=== PATIENT | male | born 1960 | race Asian ===

== ENCOUNTER 2021-05-31 21:38 | Inpatient (IN) | payer MEDICARE, MEDICAID ==
[2021-05-31 21:48] VITALS: BMI 29.5
[2021-05-31] MEDS ORDERED: Ondansetron PF 4 MG/2 ML Vial IVP PRN (21:49)
[2021-05-31] MEDS ORDERED: Calcium Carbonate 500 MG ChewTAB PO PRN (21:49)
[2021-05-31] MEDS ORDERED: Dextrose 5% in Water 1,000 ML IV PRN (21:49)
[2021-05-31] MEDS ORDERED: Acetaminophen 325 MG TAB PO PRN (21:49)
[2021-05-31] MEDS ORDERED: Dextrose 50% Abboject 50 ML SYRINGE SLOW IVP PRN (21:49)
[2021-05-31] MEDS ORDERED: Sodium Chloride 0.9% 1,000 ML IV SCH (22:00)
[2021-05-31] MEDS ORDERED: Octreotide Acetate 1,250 MCG in Sodium Chloride 0.9% 250 ML 250 ML IVPB SCH (22:00)
[2021-05-31 22:32] LABS: Iron 58 ug/dL (65-175); Iron Binding Capacity, Total 149 mcg/dL (261-462)
[2021-05-31] MEDS: Nicotine 21 MG PATCH TD SCH (22:36)
[2021-05-31] MEDS: Albumin 25% 25 GM/100 ML BOT IVPB SCH (22:36)
[2021-05-31 22:41] LABS: #Basophils 0.1 10x3/uL (0.0-0.2); #Eosinphils 0.3 10x3/uL (0.0-0.5); #Monocytes 0.8 10x3/uL (0.0-1.1); %Basophils 0.8 % (0.0-2.0); %Eosinophils 3.9 % (0.0-6.0); %Lymphocytes 16.6 % (18.0-47.0); %Monocytes 10.7 % (0.0-10.0); %Neutrophils 67.5 % (40.0-75.0); Hemoglobin 6.6 g/dL (13.5-17.5); Mean Corpuscular HGB CONC 32.8 g/dL (32.0-36.0); Mean Corpuscular Hemoglobin 20.6 pg (27.0-33.0); Mean Corpuscular Volume 62.6 fl (81.2-95.1); Mean Platelet Volume 9.4 fl (7.4-10.4); Platelet Count 79 10x3/uL (150-450); RBC Distribution Width 20.8 % (11.5-14.5); Red Blood Cell (RBC) Count 3.21 10x6/uL (4.32-5.72); White Blood Cell (WBC) Count 7.4 10x3/uL (3.5-10.5)
[2021-05-31] MEDS: cefTRIAXone\\ROCEPHIN 1 GM in Sodium Chloride 0.9% 100 ML IVPB SCH (23:43)
[2021-05-31 23:53] LABS: Anisocytosis MODERATE=16-30 cells (100X) (0-5/hpf); Hypochromia MODERATE=16-30 cells (100X) (0-5/hpf); Microcytosis MODERATE=15-30 cells (100X) (0-5/hpf); Spherocytes SLIGHT = 1-5 cells (100X) (None Seen)
[2021-05-31 23:54] LABS: Stomatocytes SLIGHT = 2-5 cells (100X) (0-1/hpf); Target Cells SLIGHT = 2-5 cells (100X) (0-1/hpf)
[2021-05-31 23:57] LABS: Platelet Morphology Comment Appears Decreased
[2021-05-31 23:57] LABS: SARS-CoV-2 NAA Rapid Test Not Detected (NotDetected)
[2021-06-01] LABS: Small Platelets SLIGHT
[2021-06-01 00:06] LABS: Hemoglobin C Crystals SLIGHT (None Seen)
[2021-06-01] MEDS: Thiamine HCl 200 MG/2 ML VIAL SLOW IVP SCH ×2 (00:07→23:59)
[2021-06-01] MEDS: Albumin 25% 25 GM/100 ML BOT IVPB SCH (04:28)
[2021-06-01 05:47] LABS: #Eosinphils 0.3 10x3/uL (0.0-0.5); #Monocytes 0.5 10x3/uL (0.0-1.1); #Neutrophils 3.4 10x3/uL (1.5-8.4); %Basophils 0.8 % (0.0-2.0); %Eosinophils 5.7 % (0.0-6.0); %Lymphocytes 17.9 % (18.0-47.0); %Monocytes 10.1 % (0.0-10.0); %Neutrophils 65.1 % (40.0-75.0); Hemoglobin 7.3 g/dL (13.5-17.5); Mean Corpuscular Hemoglobin 22.1 pg (27.0-33.0); Mean Corpuscular Volume 66.8 fl (81.2-95.1); Mean Platelet Volume 9.3 fl (7.4-10.4); Platelet Count 62 10x3/uL (150-450); RBC Distribution Width 23.5 % (11.5-14.5); Red Blood Cell (RBC) Count 3.31 10x6/uL (4.32-5.72); White Blood Cell (WBC) Count 5.3 10x3/uL (3.5-10.5)
[2021-06-01 06:06] LABS: Anion Gap 13 mmol/L (10-20); BUN (Urea Nitrogen) 37 mg/dL (8.4-25.7); Calc. Creatinine Clearance 73 mL/min (70-130); Carbon Dioxide 19 mmol/L (23-31); Chloride 106 mmol/L (98-107); Potassium 4.3 mmol/L (3.5-5.1); Sodium 134 mmol/L (136-145)
[2021-06-01 06:07] LABS: Calcium 8.4 mg/dL (7.8-10.44); Glucose 70 mg/dL (80-115)
[2021-06-01] MEDS: Pantoprazole 80 MG in Sodium Chloride 0.9% 100 ML IVPB SCH ×2 (06:10→13:24)
[2021-06-01] MEDS ORDERED: Glimepiride 4 MG TAB PO SCH (07:30)
[2021-06-01] MEDS: Lantus 1000 UNITS/10 ML VIAL SC SCH (08:38)
[2021-06-01] MEDS: Folic Acid 1 MG TAB PO SCH (08:38)
[2021-06-01] MEDS: Sotalol HCl 80 MG TAB PO SCH (08:39)
[2021-06-01] MEDS: Rifaximin 550 MG TAB PO SCH ×2 (08:39→21:08)
[2021-06-01 09:21] LABS: #Eosinphils 0.3 10x3/uL (0.0-0.5); #Monocytes 0.6 10x3/uL (0.0-1.1); #Neutrophils 3.6 10x3/uL (1.5-8.4); %Basophils 0.8 % (0.0-2.0); %Eosinophils 6.4 % (0.0-6.0); %Lymphocytes 13.6 % (18.0-47.0); %Monocytes 10.4 % (0.0-10.0); %Neutrophils 68.6 % (40.0-75.0); Hemoglobin 7.8 g/dL (13.5-17.5); Mean Corpuscular HGB CONC 33.6 g/dL (32.0-36.0); Mean Corpuscular Hemoglobin 22.4 pg (27.0-33.0); Mean Corpuscular Volume 66.7 fl (81.2-95.1); Mean Platelet Volume 9.6 fl (7.4-10.4); Platelet Count 60 10x3/uL (150-450); RBC Distribution Width 23.2 % (11.5-14.5); Red Blood Cell (RBC) Count 3.48 10x6/uL (4.32-5.72); White Blood Cell (WBC) Count 5.3 10x3/uL (3.5-10.5)
[2021-06-01] MEDS: HumaLOG 300 UNITS/3 ML VIAL SC PRN ×2 (10:31→18:42)
[2021-06-01 15:55] LABS: Bilirubin Neg (Negative); Blood, Urine Negative (Negative); Clarity Clear (Clear); Glucose, Urine (Dipstick) Normal (Negative); Ketone, Urine Negative (Negative); Leukocyte Negative (Negative); Nitrite Negative (Negative); Protein, Urine (Dipstick) 15 mg/dl (Neg-Trace); Urobilinogen Normal mg/dL (Less than 2)
[2021-06-01 16:27] LABS: RBC/HPF 0-3 HPF (0-3); Squamous Epithelial 0-3 HPF (0-3); WBC/HPF 0-3 HPF (0-3)
[2021-06-01 16:28] LABS: Bacteria/HPF Rare-Few HPF (None Seen)
[2021-06-01] MEDS: Nicotine 21 MG PATCH TD SCH (21:09)
[2021-06-01] MEDS: cefTRIAXone\\ROCEPHIN 1 GM in Sodium Chloride 0.9% 100 ML IVPB SCH (23:59)
[2021-06-02 04:41] LABS: INR-International Normal Ratio 1.1; Prothrombin Time 11.9 sec (9.5-12.1)
[2021-06-02 04:45] LABS: ALT (SGPT) 16 U/L (8-55); AST (SGOT) 21 U/L (5-34); Albumin 3.4 g/dL (3.4-4.8); Alkaline Phosphatase 104 U/L (40-110); Anion Gap 12 mmol/L (10-20); BUN (Urea Nitrogen) 30 mg/dL (8.4-25.7); Bilirubin, Total 3.9 mg/dL (0.2-1.2); Calc. Creatinine Clearance 70 mL/min (70-130); Calcium 8.3 mg/dL (7.8-10.44); Carbon Dioxide 19 mmol/L (23-31); Chloride 107 mmol/L (98-107); Globulin 2.1 g/dL (2.4-3.5); Glucose 100 mg/dL (80-115); Potassium 5.1 mmol/L (3.5-5.1); Protein, Total 5.5 g/dL (5.8-8.1); Sodium 133 mmol/L (136-145)
[2021-06-02 04:53] LABS: #Basophils 0.1 10x3/uL (0.0-0.2); #Eosinphils 0.5 10x3/uL (0.0-0.5); #Monocytes 0.7 10x3/uL (0.0-1.1); #Neutrophils 4.5 10x3/uL (1.5-8.4); %Basophils 0.9 % (0.0-2.0); %Eosinophils 6.9 % (0.0-6.0); %Lymphocytes 14.7 % (18.0-47.0); %Monocytes 9.9 % (0.0-10.0); %Neutrophils 66.9 % (40.0-75.0); Mean Corpuscular HGB CONC 33.8 g/dL (32.0-36.0); Mean Corpuscular Volume 65.3 fl (81.2-95.1); Mean Platelet Volume 9.4 fl (7.4-10.4); Platelet Count 62 10x3/uL (150-450); Red Blood Cell (RBC) Count 3.63 10x6/uL (4.32-5.72); White Blood Cell (WBC) Count 6.8 10x3/uL (3.5-10.5)
[2021-06-02] MEDS: Lantus 1000 UNITS/10 ML VIAL SC SCH (09:57)
[2021-06-02] MEDS: Rifaximin 550 MG TAB PO SCH ×2 (10:11→21:12)
[2021-06-02] MEDS: Sotalol HCl 80 MG TAB PO SCH (10:11)
[2021-06-02] MEDS: Folic Acid 1 MG TAB PO SCH (10:11)
[2021-06-02] MEDS: HumaLOG 300 UNITS/3 ML VIAL SC PRN (15:42)
[2021-06-02] MEDS: Nicotine 21 MG PATCH TD SCH (21:12)
[2021-06-02] MEDS: cefTRIAXone\\ROCEPHIN 1 GM in Sodium Chloride 0.9% 100 ML IVPB SCH (22:51)
[2021-06-02] MEDS: Thiamine HCl 200 MG/2 ML VIAL SLOW IVP SCH (23:00)
[2021-06-03 08:56] LABS: Anion Gap 13 mmol/L (10-20); BUN (Urea Nitrogen) 28 mg/dL (8.4-25.7); Calc. Creatinine Clearance 75 mL/min (70-130); Calcium 8.2 mg/dL (7.8-10.44); Carbon Dioxide 19 mmol/L (23-31); Chloride 105 mmol/L (98-107); Glucose 91 mg/dL (80-115); Potassium 5.5 mmol/L (3.5-5.1); Sodium 131 mmol/L (136-145)
[2021-06-03] MEDS: Sotalol HCl 80 MG TAB PO SCH (08:57)
[2021-06-03] MEDS: Rifaximin 550 MG TAB PO SCH ×2 (08:57→21:08)
[2021-06-03] MEDS: Lantus 1000 UNITS/10 ML VIAL SC SCH (08:57)
[2021-06-03] MEDS: Folic Acid 1 MG TAB PO SCH (08:57)
[2021-06-03 09:06] LABS: Hemoglobin 8.9 g/dL (13.5-17.5)
[2021-06-03 18:12] LABS: Potassium 5.2 mmol/L (3.5-5.1)
[2021-06-03] MEDS: Nicotine 21 MG PATCH TD SCH (21:08)
[2021-06-03] MEDS: Pantoprazole 40 MG VIAL IVP SCH (21:08)
[2021-06-03] MEDS: cefTRIAXone\\ROCEPHIN 1 GM in Sodium Chloride 0.9% 100 ML IVPB SCH (23:17)
[2021-06-03] MEDS: Thiamine HCl 200 MG/2 ML VIAL SLOW IVP SCH (23:18)
[2021-06-04 04:12] LABS: ALT (SGPT) 15 U/L (8-55); AST (SGOT) 20 U/L (5-34); Albumin 3.1 g/dL (3.4-4.8); Alkaline Phosphatase 108 U/L (40-110); Anion Gap 11 mmol/L (10-20); BUN (Urea Nitrogen) 28 mg/dL (8.4-25.7); Bilirubin, Total 3.2 mg/dL (0.2-1.2); Calc. Creatinine Clearance 78 mL/min (70-130); Calcium 8.2 mg/dL (7.8-10.44); Carbon Dioxide 17 mmol/L (23-31); Chloride 110 mmol/L (98-107); Globulin 2.4 g/dL (2.4-3.5); Glucose 139 mg/dL (80-115); Hemoglobin 8.7 g/dL (13.5-17.5); Potassium 3.9 mmol/L (3.5-5.1); Protein, Total 5.5 g/dL (5.8-8.1); Sodium 134 mmol/L (136-145)
[2021-06-04] MEDS: Folic Acid 1 MG TAB PO SCH (08:41)
[2021-06-04] MEDS: Lantus 1000 UNITS/10 ML VIAL SC SCH (08:41)
[2021-06-04] MEDS: Pantoprazole 40 MG VIAL IVP SCH ×2 (08:41→21:37)
[2021-06-04] MEDS: Rifaximin 550 MG TAB PO SCH ×2 (08:41→21:36)
[2021-06-04] MEDS: Sotalol HCl 80 MG TAB PO SCH (08:41)
[2021-06-04] MEDS ORDERED: Sodium Bicarbonate 2.5 MEQ/5 ML VIAL ONE (11:41)
[2021-06-04 14:43] LABS: Body Fluid Source Ascites Body Fluid
[2021-06-04 14:45] LABS: BF Color Yellow; Clarity Clear (Clear); Tube # EDTA
[2021-06-04 15:31] LABS: BF Segmented Neutrophils 3 %; Cell Count Non Hematic 41 %; Lymphocytes 56 %
[2021-06-04] MEDS: HumaLOG 300 UNITS/3 ML VIAL SC PRN ×2 (17:32→21:38)
[2021-06-04] MEDS: Nicotine 21 MG PATCH TD SCH (21:37)
[2021-06-04] MEDS: Thiamine HCl 200 MG/2 ML VIAL SLOW IVP SCH (23:48)
[2021-06-04] MEDS: cefTRIAXone\\ROCEPHIN 1 GM in Sodium Chloride 0.9% 100 ML IVPB SCH (23:49)
[2021-06-05 07:42] LABS: Hemoglobin 8.3 g/dL (13.5-17.5)
[2021-06-05] MEDS ORDERED: Spironolactone 25 MG TAB PO SCH (08:00)
[2021-06-05] MEDS ORDERED: Furosemide 20 MG TAB PO SCH (09:00)
[2021-06-05] MEDS: Sotalol HCl 80 MG TAB PO SCH (09:37)
[2021-06-05] MEDS: Lantus 1000 UNITS/10 ML VIAL SC SCH (09:38)
[2021-06-05] MEDS: Rifaximin 550 MG TAB PO SCH (09:38)
[2021-06-05] MEDS: Folic Acid 1 MG TAB PO SCH (09:38)
[2021-06-05] MEDS: HumaLOG 300 UNITS/3 ML VIAL SC PRN (12:32)
[2021-06-05 12:36] VITALS: TEMP 97.4
[2021-06-05 12:50] VITALS: BP 114/60
== END 2021-06-05 13:19 | DRG 377 ==
LOC: CSHIMCU 21:38 → CSHTELE 06-01 18:33
PROVIDERS: ADMIT Student in an Organized Health Care Education/Training Program; ATTEND Internal Medicine
PROC: 30233N1 Transfusion of Nonautologous Red Blood Cells into Peripheral Vein, Percutaneous Approach (ICD-10-PCS; 2021-06-01)
PROC: 0DB98ZX Excision of Duodenum, Via Natural or Artificial Opening Endoscopic, Diagnostic (ICD-10-PCS; principal; 2021-06-02)
PROC: 06L38CZ Occlusion of Esophageal Vein with Extraluminal Device, Via Natural or Artificial Opening Endoscopic (ICD-10-PCS; 2021-06-02)
PROC: 0W9G3ZZ Drainage of Peritoneal Cavity, Percutaneous Approach (ICD-10-PCS; 2021-06-04)
DX: K92.2 Gastrointestinal hemorrhage, unspecified (principal); I85.11 Secondary esophageal varices with bleeding; I81 Portal vein thrombosis; K76.6 Portal hypertension; D62 Acute posthemorrhagic anemia; E87.1 Hypo-osmolality and hyponatremia; K31.89 Other diseases of stomach and duodenum; K31.7 Polyp of stomach and duodenum; N18.2 Chronic kidney disease, stage 2 (mild); Z20.822 Contact with and (suspected) exposure to COVID-19; K70.31 Alcoholic cirrhosis of liver with ascites; E11.22 Type 2 diabetes mellitus with diabetic chronic kidney disease; E11.65 Type 2 diabetes mellitus with hyperglycemia; Z79.4 Long term (current) use of insulin; E88.09 Other disorders of plasma-protein metabolism, not elsewhere classified; D69.6 Thrombocytopenia, unspecified; K72.90 Hepatic failure, unspecified without coma; K70.9 Alcoholic liver disease, unspecified; I86.4 Gastric varices
CPT/HCPCS: 36415; 36416; 36430; 49083; 80048; 80053; 81001; 82042; 82140; 82274; 82607; 82728; 82746; 83540; 83550; 84157; 85014; 85018; 85025; 85610; 86850; 86900; 86901; 87070; 87205; 88305; 89051; C9113; J0696; J1815; J2354; J3411; J3490; J7050; P9016; P9047; U0002